=== PATIENT | female | born 1950 | race Caucasian/White ===

== ENCOUNTER 2017-09-16 09:14 | Outpatient (CLI) | payer BC ==
--- NOTE | 2017-09-16 10:24 | RAD ---
DOUBLE CONTRAST BARIUM ESOPHAGRAM: Date: 09/16/17 INDICATION: History of dysphagia, R13.10. TECHNIQUE: Thin barium, thick barium, and effervescent crystals were utilized for the examination. Total fluoros copic time was 1.8 minutes. Total exposure was 322.8 mGy*cm^2. FINDINGS: The esophagus demonstrated a normal contour, motility, and mucosal pattern. There is some mild indent ation on the proximal posterior aspect of the esophagus for a mildly prominent disc at the mid to dis brenda cervical spine. There are surgical clips seen within the soft tissues of the neck base. No hiatal hernia is demonstrated. There was no elicitation of reflux with Valsalva maneuvers and patient lying supine on the fluoroscopy table. A 12.5 mm barium tablet passed without difficulty. IMPRESSION: 1. No gastroesophageal reflux demonstrated. 2. No intraluminal mass, stricture, or motility abnormality demonstrated. POS: REANNA
== END 2017-09-16 09:15 | disposition home or self-care (01) ==
LOC: RAD 09:14
PROVIDERS: ATTEND Family Medicine
DX: R13.10 Dysphagia, unspecified (principal)
CPT/HCPCS: 74220

== ENCOUNTER 2018-07-17 07:55 | Outpatient (CLI) | payer BC | END 2018-07-17 07:56 | disposition home or self-care (01) | LOC: BICMAMMO 07:55 | PROVIDERS: ATTEND Family Medicine | DX: Z12.31 Encounter for screening mammogram for malignant neoplasm of breast (principal); Z85.3 Personal history of malignant neoplasm of breast | CPT/HCPCS: 77063; 77067 ==

== ENCOUNTER 2018-10-02 07:26 | Outpatient (CLI) | payer BC ==
--- NOTE | 2018-10-02 08:43 | CT ---
CT PARANASAL SINUSES NONCONTRAST: Date: 10/02/18 HISTORY: Sinusitis. FINDINGS: No air fluid levels or mucosal thickening. Minimal leftward deviation of the nasal septum. Each ethmo id infundibulum is patent. Small right nasal corky bullosa middle turbinate. Degenerative changes of the temporomandibular joints. IMPRESSION: No CT evidence of paranasal sinusitis. POS: TPC
== END 2018-10-02 07:27 | disposition home or self-care (01) ==
LOC: BICCT 07:26
PROVIDERS: ATTEND Allergy & Immunology
DX: J32.9 Chronic sinusitis, unspecified (principal)

== ENCOUNTER 2019-07-20 08:03 | Outpatient (CLI) | payer BC ==
--- NOTE | 2019-07-20 09:42 | MMO ---
Bilateral MAMMO Bilat Screen [facility]. CLINICAL HISTORY: Patient is 69 years old and is seen for screening. The patient has no family history of breast cancer. The patient has a history of right Ultrasound Guided Core Biopsy in 2012 - benign, right Lumpectomy in 2008 - malignant and right Ultrasound Guided Core Biopsy in 2009 - malignant. VIEWS: The views performed were: bilateral craniocaudal with tomosynthesis and bilateral mediolateral oblique with tomosynthesis. FILMS COMPARED: The present examination has been compared to prior imaging studies performed at [facility] on 07/09/2015, 07/13/2016, 07/13/2017 and 07/17/2018. This study has been interpreted with the assistance of computer-aided detection. MAMMOGRAM FINDINGS: The breasts are heterogeneously dense, which could obscure a lesion on mammography. Finding 1: There are stable benign appearing calcifications seen in both breasts. Finding 2: There are stable post operative changes seen in the right breast. There are no suspicious masses, suspicious calcifications, or new areas of architectural distortion. IMPRESSION: THERE IS NO MAMMOGRAPHIC EVIDENCE OF MALIGNANCY. A ROUTINE FOLLOW-UP MAMMOGRAM IN 1 YEAR IS RECOMMENDED. THE RESULTS OF THIS EXAM WERE SENT TO THE PATIENT. ACR BI-RADS Category 2 - Benign finding MAMMOGRAPHY NOTE: 1. A negative mammogram report should not delay a biopsy if a dominant of clinically suspicious mass is present. 2. Approximately 10% to 15% of breast cancers are not detected by mammography. 3. Adenosis and dense breasts may obscure an underlying neoplasm. Reported by: DORCAS SANDOVAL MD Electonically Signed: [id number]
== END 2019-07-20 08:04 | disposition home or self-care (01) ==
LOC: BICMAMMO 08:03
PROVIDERS: ATTEND Family Medicine
DX: Z12.31 Encounter for screening mammogram for malignant neoplasm of breast (principal); Z85.3 Personal history of malignant neoplasm of breast
CPT/HCPCS: 77063; 77067

== ENCOUNTER 2020-04-09 10:33 | Outpatient (CLI) | payer BC ==
--- NOTE | 2020-04-09 11:47 | MRI ---
MRI LUMBAR SPINE NONCONTRAST: HISTORY: Lumbar radiculopathy. Pain. COMPARISON: None. FINDINGS: Appropriate T1 marrow signal intensity of the lumbar vertebra. Lumbar spine vertebral body heights ar e maintained. No fracture. No significant STIR hyperintensity to suggest vertebral body edema or ligamentous injury. Remote Schmorl's node along the superior endplate of T12. No significant retropulsion. Partial sacralization of L5 with a rudimentary L5-S1 disc. Spondylolisthesis: 4.5 mm of anterolisthesis of L3 upon L4. 6.9 mm anterolisthesis of L4 upon L5. No definite associated spondylolysis. Appropriate signal intensity of the visualized paraspinal muscles and solid organs. Bilateral extrarenal pelvises are noted. Mild left calyceal dilatation is suspected. Incompletely stephen luated right renal cortical cyst. Conus medullaris terminates at the mid L1 level. T12-L1:Adequate disc hydration. No posterior disc abnormality. No significant central canal stenosis or significant neural foraminal narrowing. L1-L2:Adequate disc hydration. No posterior disc abnormality. No significant central canal stenosis o r significant neural foraminal narrowing. L2-L3:Adequate disc hydration. Mild loss of disc space height. Broad-based disc bulge, ligamentum fla vum thickening and facet hypertrophy result in mild to moderate central canal stenosis. Trace fluid in both facet joints. Mild bilateral neural foraminal narrowing. L3-L4:Minimal disc desiccation without significant loss of disc space height. Broad-based disc bulge, ligamentum flavum thickening and facet hypertrophy result in moderate central canal stenosis. Moderate bilateral neural foraminal narrowing. L4-L5:Disc desiccation without significant loss of disc space height. There is a broad-based disc bul ge, ligament flavum thickening and facet hypertrophy. Moderate to severe central canal stenosis. Significant facet hypertrophy with fluid in both facet joints. Moderate to severe bilateral neural fo raminal narrowing. There is a T2 and STIR hyperintensity along the midline portion of the annulus compatible with annular fissure. L5-S1:Rudimentary disc. No significant central canal stenosis. Patent neural foraminal. IMPRESSION: Multilevel degenerative changes of the lumbar spine as detailed above. Transcribed Date/Time: 04/09/2020 12:22 PM
== END 2020-04-09 10:34 | disposition home or self-care (01) ==
LOC: TBSIIMAG 10:33
PROVIDERS: ATTEND Neurological Surgery
DX: M47.26 Other spondylosis with radiculopathy, lumbar region (principal)
CPT/HCPCS: 72148

== ENCOUNTER 2020-05-01 11:18 | Outpatient (CLI) | payer BC ==
--- NOTE | 2020-05-01 11:49 | RAD ---
XR Lumbar Spine Min 4 View History: Pain Comparison: None. Findings: Lumbosacral transitional vertebra of L5 with enlarged bilateral L5 transverse process fused with the sacrum. Mild SI joint degeneration. Low-grade levoscoliosis. Moderate facet arthropathy. Grade 1 L3 over L4 5 mm anterolisthesis as well as grade 1 L4 over 5 6 mm anterolisthesis. Relatively high-grade facet arthropathy L3-L5. Paraspinal soft tissues are unremarkable. Mild increased translation with flexion and extension. Impression: L3/L4 and L4/L5 anterolisthesis with mild increased translation with flexion and extensio n.
== END 2020-05-01 11:19 | disposition home or self-care (01) ==
LOC: BICRAD 11:18
PROVIDERS: ATTEND Family Medicine
DX: M43.16 Spondylolisthesis, lumbar region (principal); G89.4 Chronic pain syndrome
CPT/HCPCS: 72110

== ENCOUNTER 2020-07-21 08:30 | Outpatient (CLI) | payer BC ==
--- NOTE | 2020-07-21 09:35 | MMO ---
Bilateral MAMMO Bilat Screen [facility]. CLINICAL HISTORY: Patient is 70 years old and is seen for screening. The patient has no family history of breast cancer. The patient has a history of malignant (generic) in the right breast 2008. The patient has a history of right Ultrasound Guided Core Biopsy in 2011 - benign, right Lumpectomy in 2008 - malignant and right Ultrasound Guided Core Biopsy in 2008 - malignant. VIEWS: The views performed were: bilateral craniocaudal with tomosynthesis and bilateral mediolateral oblique with tomosynthesis. FILMS COMPARED: The present examination has been compared to prior imaging studies performed at [facility] on 07/13/2016, 07/13/2017, 07/17/2018 and 07/20/2019. This study has been interpreted with the assistance of computer-aided detection. MAMMOGRAM FINDINGS: The breasts are heterogeneously dense, which could obscure a lesion on mammography. Finding 1: Benign calcifications are noted bilaterally. There are stable riight sided post-operative changes. Right biopsy clip. Finding 2: There is a questionable nodular density in the right mid breast on CC view. IMPRESSION: FINDING 1: FINDINGS IN BOTH BREASTS ARE BENIGN. FINDING 2: FINDING IN THE RIGHT BREAST REQUIRES ADDITIONAL EVALUATION. SPOT COMPRESSION IS RECOMMENDED. AN ULTRASOUND EXAM IS RECOMMENDED. ADDITIONAL IMAGING. THE RESULTS OF THIS EXAM WERE SENT TO THE PATIENT. ACR BI-RADS Category 0 - Incomplete: Need additional imaging evaluation. [facility] will notify the patient of the need for additional imaging services. MAMMOGRAPHY NOTE: 1. A negative mammogram report should not delay a biopsy if a dominant of clinically suspicious mass is present. 2. Approximately 10% to 15% of breast cancers are not detected by mammography. 3. Adenosis and dense breasts may obscure an underlying neoplasm. Reported by: MICHAEL SADLER MD Electonically Signed: [id number]
== END 2020-07-21 08:31 | disposition home or self-care (01) ==
LOC: BICMAMMO 08:30
PROVIDERS: ATTEND Internal Medicine Hematology & Oncology
DX: Z12.31 Encounter for screening mammogram for malignant neoplasm of breast (principal); Z80.3 Family history of malignant neoplasm of breast; Z98.890 Other specified postprocedural states
CPT/HCPCS: 77063; 77067

== ENCOUNTER 2020-07-30 08:30 | Outpatient (CLI) | payer BC ==
--- NOTE | 2020-07-30 09:22 | MMO ---
Right Breast MAMMO Unilat Diag [facility]. CLINICAL HISTORY: Patient is 70 years old and is seen for diagnostic exam. The patient has no family history of breast cancer. The patient has a history of malignant (generic) in the right breast 2008. The patient has a history of right Ultrasound Guided Core Biopsy in 2011 - benign, right Lumpectomy in 2008 - malignant and right Ultrasound Guided Core Biopsy in 2008 - malignant. VIEWS: The views performed were: right craniocaudal with tomosynthesis; right mediolateral oblique with tomosynthesis; and right mediolateral with tomosynthesis. FILMS COMPARED: The present examination has been compared to prior imaging studies performed at [facility] on 07/17/2018, 07/20/2019, 07/21/2020 and 07/30/2020. This study has been interpreted with the assistance of computer-aided detection. MAMMOGRAM FINDINGS: The breast is heterogeneously dense, which could obscure a lesion on mammography. The asymmetry seen at screening mammography does not persist at additional imaging, compatible with superimposed tissue. Sonography of this region is also normal. There are no suspicious masses, suspicious calcifications, or new areas of architectural distortion. IMPRESSION: THERE IS NO MAMMOGRAPHIC EVIDENCE OF MALIGNANCY. A ROUTINE FOLLOW-UP MAMMOGRAM IN 1 YEAR IS RECOMMENDED. THE RESULTS OF THIS EXAM WERE SENT TO THE PATIENT. ACR BI-RADS Category 2 - Benign finding MAMMOGRAPHY NOTE: 1. A negative mammogram report should not delay a biopsy if a dominant of clinically suspicious mass is present. 2. Approximately 10% to 15% of breast cancers are not detected by mammography. 3. Adenosis and dense breasts may obscure an underlying neoplasm. Reported by: MONTEZ HERNANDEZ MD Electonically Signed: [id number]
--- NOTE | 2020-07-30 09:23 | MMO ---
Right US Breast Limited Rt. CLINICAL HISTORY: Patient is 70 years old and is seen for . The patient has a history of right Ultrasound Guided Core Biopsy in 2012 - benign, right Lumpectomy in 2009 - malignant and right Ultrasound Guided Core Biopsy in 2009 - malignant. VIEWS: The views performed were: . FILMS COMPARED: The present examination has been compared to prior imaging studies performed at [facility] on 07/17/2018, 07/20/2019, 07/21/2020 and 07/30/2020. This study has been interpreted with the assistance of computer-aided detection. RIGHT BREAST ULTRASOUND FINDINGS: Sonography of the region of screening mammographic concern demonstrates no concerning findings. IMPRESSION: THERE IS NO MAMMOGRAPHIC EVIDENCE OF MALIGNANCY. A ROUTINE FOLLOW-UP MAMMOGRAM IN 1 YEAR IS RECOMMENDED. THE RESULTS OF THIS EXAM WERE SENT TO THE PATIENT. ACR BI-RADS Category 2 - Benign finding MAMMOGRAPHY NOTE: 1. A negative mammogram report should not delay a biopsy if a dominant of clinically suspicious mass is present. 2. Approximately 10% to 15% of breast cancers are not detected by mammography. 3. Adenosis and dense breasts may obscure an underlying neoplasm. Reported by: MONTEZ HERNANDEZ MD Electonically Signed: [id number]
== END 2020-07-30 08:31 | disposition home or self-care (01) ==
LOC: BICMAMMO 08:30
PROVIDERS: ATTEND Internal Medicine Hematology & Oncology
DX: R92.2 Inconclusive mammogram (principal)
CPT/HCPCS: G0279

== ENCOUNTER 2023-04-04 08:57 | Outpatient (CLI) | payer OTHER | END 2023-04-04 08:58 | disposition home or self-care (01) | LOC: BICCT 08:57 | PROVIDERS: ATTEND Family Medicine | DX: R91.1 Solitary pulmonary nodule (principal) | CPT/HCPCS: 71250 ==